=== PATIENT | female | born 1990 | race Caucasian/White ===

== ENCOUNTER 2017-12-03 20:39 | Emergency (ER) | payer OTHER ==
[~2017-12-03] VITALS: Ht 165.1 cm; Wt 68.0 kg
[~2017-12-03 20:39] MED LIST: VENTOLIN HFA 1818 GM INH
[2017-12-03] MEDS ORDERED: ONDANSETRON HCL4 M2 PO (22:56)
[2017-12-03 23:00] VITALS: BP 95/51
== END 2017-12-03 23:05 | disposition home or self-care (01) ==
LOC: ER 20:39
DX: R51 Headache (principal); R11.2 Nausea with vomiting, unspecified; J45.909 Unspecified asthma, uncomplicated; T74.21XA Adult sexual abuse, confirmed, initial encounter; F17.210 Nicotine dependence, cigarettes, uncomplicated; Z88.5 Allergy status to narcotic agent